=== PATIENT | male | born 1995 | race Caucasian/White ===

== ENCOUNTER 2017-04-28 12:52 | Emergency (ER) | payer OTHER ==
[~2017-04-28] VITALS: Ht 177.8 cm; Wt 69.4 kg
[2017-04-28 12:59] VITALS: BP 118/65
--- NOTE | 2017-04-28 13:09 | NUR ---
UA collected, pt sent to lobby to wait for a bed.
--- NOTE | 2017-04-28 14:32 | NUR ---
PT AMBULATED TO ER BED 2
--- NOTE | 2017-04-28 14:34 | NUR ---
22M BIB FAMILY C/O RIGHT FLANK PAIN, SHARP, RADIATES TO LEFT FLANK AND LOWER BACK, 09/27 X 3 DAYS; PT STATES NO TRAUMA OR INJURY TO SITE AT THIS TIME; PT STATES NO URINARY FREQUENCY, URINARY BURNING OR URINARY RETENTION AT THIS TIME; PT STATES NO N/V/D AT THIS TIME; PT AA&OX4, BL LUNG SOUNDS CLEAR, RR EVEN/UNLABORED, SKIN IS WARM/DRY/INTACT WITH EVEN AND STEADY GAIT; PT RESTING IN BED, POSITIONED FOR COMFORT; ER MD MADE AWARE OF STATUS. WILL CONTINUE TO MONITOR.
[2017-04-28] MEDS ORDERED: NACL 0.9% 1,000 ML IV SCH (15:17)
[2017-04-28] MEDS ORDERED: KETOROLAC 30 MG/ML VIAL IVP ONE (15:20)
[2017-04-28 15:32] LABS: BASOPHILS # (AUTO) 0.1 K/uL (0.00-0.22); BASOPHILS % (AUTO) 1.2 % (0.0-2.0); EOSINOPHILS # (AUTO) 0.1 K/uL (0-0.4); EOSINOPHILS % (AUTO) 1.1 % (0.0-4.0); HEMATOCRIT 49.7 % (36-52); HEMOGLOBIN 16.6 g/dL (12.0-18.0); LYMPHOCYTES # (AUTO) 1.5 K/uL (2.0-11.5); LYMPHOCYTES % (AUTO) 13.6 % (20.5-51.1); MEAN CORPUSCULAR HEMOGLOBIN 29 pg (27-31); MEAN CORPUSCULAR HGB CONC 33 g/dL (33-37); MEAN CORPUSCULAR VOLUME 86 fL (80-94); MONOCYTES # (AUTO) 0.6 K/uL (0.8-1.0); MONOCYTES % (AUTO) 5.2 % (1.7-9.3); NEUTROPHILS % (AUTO) 78.9 % (42.2-75.2); PLATELET COUNT (AUTO) 229 K/uL (140-450); RED BLOOD CELL COUNT(AUTO) 5.78 MIL/uL (4.20-6.10); WHITE BLOOD COUNT (AUTO) 11.3 K/uL (4.5-11.0)
[2017-04-28 15:35] LABS: APPEARANCE,URINE CLEAR (CLEAR); BILIRUBIN,URINE NEGATIVE (NEGATIVE); BLOOD, URINE NEGATIVE (NEGATIVE); COLOR,URINE YELLOW (YELLOW); LEUKOCYTE ESTERASE ,URINE NEGATIVE (NEGATIVE); NITRITE, URINE NEGATIVE (NEGATIVE); PH,URINE 5.5 (5.0-9.0); UGLUCOSE NEGATIVE (NEGATIVE)
[2017-04-28 15:41] LABS: ANION GAP 13.2 (8-16); CARBON DIOXIDE 29.5 mmol/L (21-32); CREATININE 1.1 mg/dL (0.7-1.3); POTASSIUM 3.7 mmol/L (3.5-5.1)
[2017-04-28 15:46] LABS: ALBUMIN 4.4 g/dL (3.4-5.0)
[2017-04-28 15:59] LABS: TOTAL BILIRUBIN 0.9 mg/dL (0.0-1.0)
[2017-04-28 17:20] VITALS: BP 107/62
--- NOTE | 2017-04-28 17:20 | NUR ---
Patient discharged with v/s stable. Written and verbal after care instructions given and explained. Patient alert, oriented and verbalized understanding of instructions. Carried with steady gait. All questions addressed prior to discharge. ID band removed. Patient advised to follow up with PMD. Rx of IBUPROFEN 600MG TAB given. Patient educated on indication of medication including possible reaction and side effects. Opportunity to ask questions provided and answered.
== END 2017-04-28 17:20 | disposition home or self-care (01) ==
LOC: MED 12:52
DX: R10.9 Unspecified abdominal pain (principal); F17.210 Nicotine dependence, cigarettes, uncomplicated; Z91.018 Allergy to other foods; Z87.442 Personal history of urinary calculi
CPT/HCPCS: 36415; 74176; 80053; 81003; 83690; 85025; 96361; 96374; 99285; J1885; J7030

== ENCOUNTER 2021-01-14 13:31 | Emergency (ER) | payer OTHER ==
[~2021-01-14] VITALS: Ht 180.3 cm; Wt 62.1 kg
[2021-01-14 13:46] VITALS: BP 112/44
--- NOTE | 2021-01-14 13:58 | NUR ---
25/M BIB SELF WITH LACERATION ON TOP OF HEAD. PATIENT STATES HE WAS WASHING A CAR AND THE TRUNK WAS OPEN, STATING HE TURN AROUND AND "THERE WAS A SHARP OBJECT HANGING FROM THE TRUNK DOOR" STATING HE HIT HIS HEAD ON IT. LACERATION NOTED TO TOP OF HEAD, BLEEDING CONTROLLED AT THIS TIME, DENIES LOC, BUT STATES "I GOT DIZZY AND ALMOST PASSED OUT." REPORTS 09/27 HEADACHE AND DIZZINESS, DENIES BLURRED VISION, DENIES CP, SOB, N/V/D.
[2021-01-14] MEDS ORDERED: IBUP-2213 PO (14:26)
[2021-01-14] MEDS: IBUPROFEN 600 MG TAB PO ONE (14:28)
[2021-01-14 14:45] VITALS: BP 112/44
--- NOTE | 2021-01-14 14:46 | NUR ---
Patient discharged with v/s stable. Written and verbal after care instructions ABOUT HEAD INJURY AND LACERATION CARE given and explained. Patient alert, oriented and verbalized understanding of instructions. Ambulatory with steady gait. All questions addressed prior to discharge. ID band removed. Patient advised to follow up with PMD. Rx of IBUPROFEN given. Patient educated on indication of medication including possible reaction and side effects. Opportunity to ask questions provided and answered. PATIENT PROVIDED WITH WORK NOTE UNTIL 01/16/21.
== END 2021-01-14 14:46 | disposition home or self-care (01) ==
LOC: MED 13:31
DX: S01.01XA Laceration without foreign body of scalp, initial encounter (principal); Z79.899 Other long term (current) drug therapy; W22.8XXA Striking against or struck by other objects, initial encounter; Y93.89 Activity, other specified; Y92.89 Other specified places as the place of occurrence of the external cause; Y99.8 Other external cause status
CPT/HCPCS: 12001; 99282

== ENCOUNTER 2021-01-21 12:34 | Emergency (ER) | payer OTHER ==
[~2021-01-21 12:34] MED LIST: IBUP-2213 PO
--- NOTE | 2021-01-21 12:50 | NUR ---
PATIENT LEFT WITHOUT BEING SEEN BY DR. GROSSMAN. NO FURTHER CARE PROVIDED FOR PATIENT.
== END 2021-01-21 12:50 | disposition left against medical advice (07) ==
LOC: MED 12:34
DX: Z53.21 Procedure and treatment not carried out due to patient leaving prior to being seen by health care provider (principal)

== ENCOUNTER 2021-01-21 20:27 | Emergency (ER) | payer OTHER ==
[~2021-01-21] VITALS: Ht 175.3 cm; Wt 56.7 kg
[2021-01-21 20:59] VITALS: BP 109/64
--- NOTE | 2021-01-21 21:48 | NUR ---
staple was removed
--- NOTE | 2021-01-21 22:13 | NUR ---
DR. ADAMS EVALUATED PT
--- NOTE | 2021-01-21 22:20 | NUR ---
Patient discharged with v/s stable. Written and verbal after care instructions given and explained. Patient verbalized understanding. Ambulatory with steady gait. All questions addressed prior to discharge. Advised to follow up with PMD.
== END 2021-01-21 22:20 | disposition home or self-care (01) ==
LOC: MED 20:27
DX: S01.91XD Laceration without foreign body of unspecified part of head, subsequent encounter (principal); Z79.899 Other long term (current) drug therapy; X58.XXXD Exposure to other specified factors, subsequent encounter
CPT/HCPCS: 99281